=== PATIENT | female | born 1955 | race Caucasian/White ===

== ENCOUNTER → 2019-01-14 | Outpatient (CLI) | payer MEDICARE, BC ==
[2011-11-14 11:44] VITALS: BP 126/77
[~2019-01-14] MED LIST: ALLOPURINOL100 MG PO; DILTIAZEM30 MG PO; FOLIC ACID0.4 MG PO; POTASSIUM CL 220 MEQ PO; SULFAZINE500 MG PO; VITA #121000 MCG/M IM
== END ==
LOC: VAS 15:45 → RAD 16:00
DX: I51.7 Cardiomegaly (principal)

== ENCOUNTER → 2021-02-19 | Outpatient (CLI) | payer MEDICARE, BC ==
[2011-11-14 11:44] VITALS: BP 126/77
== END ==
LOC: RAD 10:33
DX: M79.662 Pain in left lower leg (principal); M79.89 Other specified soft tissue disorders

== ENCOUNTER → 2021-02-24 | Outpatient (CLI) | payer MEDICARE, BC ==
[2011-11-14 11:44] VITALS: BP 126/77
== END ==
LOC: RAD 07:38
DX: I82.412 Acute embolism and thrombosis of left femoral vein (principal); M79.604 Pain in right leg; M79.89 Other specified soft tissue disorders

== ENCOUNTER → 2021-03-05 | Outpatient (CLI) | payer MEDICARE, BC ==
[2011-11-14 11:44] VITALS: BP 126/77
== END ==
LOC: RAD 08:38
DX: Z86.718 Personal history of other venous thrombosis and embolism (principal)

== ENCOUNTER 2022-03-02 02:03 | Emergency (ER) | payer MEDICARE, BC ==
[~2022-03-02] VITALS: Ht 162.6 cm; Wt 54.0 kg
[2022-03-02 02:20] VITALS: BP 128/60
[2022-03-02] MEDS ORDERED: POTASSIUM CHLO20 ME4 PO (02:31)
[2022-03-02] MEDS ORDERED: OXYCONTIN10 M1 PO (02:31)
[2022-03-02] MEDS ORDERED: ZYLOPRIM 100MG100 MG PO (02:31)
[2022-03-02] MEDS ORDERED: LORAZEPAM0.5 M1 PO (02:31)
[2022-03-02] MEDS ORDERED: TRAMADOL 50 MG TAB PO (02:32)
[2022-03-02] MEDS ORDERED: VIT B12 (02:35)
[2022-03-02] MEDS ORDERED: MAGNESIUM OXID200 MG PO (02:35)
[2022-03-02] MEDS ORDERED: NATURE'S BLEND500 M5 PO (02:35)
[2022-03-02] MEDS ORDERED: CIPRO500 M1 PO (06:27)
== END 2022-03-02 03:27 | disposition home or self-care (01) ==
LOC: ED 02:03
DX: S01.01XA Laceration without foreign body of scalp, initial encounter (principal); W01.198A Fall on same level from slipping, tripping and stumbling with subsequent striking against other object, initial encounter
CPT/HCPCS: 15998